=== PATIENT | female | born 2000 | race Caucasian/White ===

== ENCOUNTER 2024-11-10 21:56 | Inpatient (IN) ==
[2024-11-10] MEDS ORDERED: LIDOCAINE 1% LOCAL 20 ML VIAL INFIL PRN (22:08)
[2024-11-10] MEDS ORDERED: OXYTOCIN 30 UNITS/NSS 30 UNITS/500 ML BAG IV PRN (22:08)
[2024-11-10] MEDS: OXYTOCIN 30 UNITS/NSS 30 UNITS/500 ML BAG IV PRN (22:26)
--- NOTE | 2024-11-10 22:33 | Delivery Summary ---
Vaginal Delivery Summary Date of Service November 10, 2024 Vaginal Delivery Summary and VAVD Vaginal delivery the patient arrived at 9 cm it was her third baby she did not want an epidural requested for artificial rupture of membranes this was performed it was noted that her heart rate was in the 80-100 range. After several pushes she did move the baby from 9 cm to fully dilated however at this stage I recommended vacuum we used a Kiwi vacuum attach this in the proper location and pulled for 1 contraction the head was easily delivered. Station was +2 there was no molding The shoulder required some effort is after delivery of the head there was no nuchal cord there was some thin meconium I attempted to relieve the anterior shoulder from the symphysis pubis but could not initially maternal head was lowered Tito was performed and suprapubic pressure was performed this release the shoulder 45 seconds total to deliver the baby. Baby initially required some substation but Apgars were 5 and 9 should be noted the vacuum was removed after delivery of the head I had briefly discussed with the patient risks and benefits of vacuum but the situation was emergent There was no tearing placenta was removed with gentle traction IV Pitocin started QBL was 50 mL [facility] Vaginal Delivery Charge Delivery Type Details: and VAVD
[2024-11-10] MEDS ORDERED: DIPHTHER/TETAN/PERTUS Vaccine (Tdap, Adol/Adult) 0.5mL IM ONE (22:37)
[2024-11-10] MEDS ORDERED: BENZOCAINE 20% SPRY 85 APPLN/85 GM CAN EXT PRN (22:37)
[2024-11-10] MEDS ORDERED: HYDROCORTISONE ACETATE 25 MG SUPP PR PRN (22:37)
[2024-11-11 00:04] LABS: Basophils # (auto) 0.04 K/uL (0.00-0.20); Basophils % (auto) 0.2 %; Eosinophils # (auto) 0.01 K/uL (0.00-0.50); Eosinophils % (auto) 0.1 %; Hematocrit (blood only) 35.5 % (37.0-47.0); Immature Granulocytes % (auto) 0.5 %; Lymphocytes # (auto) 1.18 K/uL (1.20-3.40); Lymphocytes % (auto) 6.1 %; Mean Corpuscular Hemoglobin 31.3 pg (25.0-34.0); Mean Corpuscular Hgb Conc 33.8 g/dL (32.0-36.0); Mean Corpuscular Volume 92.4 fL (80.0-100.0); Mean Platelet Volume 10.4 fL (9.4-12.4); Monocytes % (auto) 3.6 %; Neutrophils # (auto) 17.34 K/uL (1.40-6.50); Neutrophils % (auto) 89.5 %; Platelet Count 211 K/uL (130-400); RDW Coefficient of Variation 12.4 % (11.5-14.5); RDW Standard Deviation 41.4 fL (36.4-46.3); Red Blood Count 3.84 M/uL (4.20-5.40); White Blood Count 19.37 K/ul (4.8-10.8)
[2024-11-11] MEDS: ACETAMINOPHEN 325 MG TAB PO PRN (01:49)
[2024-11-11 03:21] LABS: Base Excess Cord Arterial Bld -3.7 mEq/L (-9-1.8); Base Excess Cord Venous Blood -3.5 mEq/L (-7.7-1.9); CO2 Cord Arterial Blood 75 mmHg (39.1-73.5); Cord Venous Blood HCO3 25 mmol/L (18.4-26.8); Cord Venous Blood PCO2 60 mmHg (30.4-57.2); Cord Venous Blood PO2 < 20 mmHg (14.1-43.3); Cord Venous Blood pH 7.23 (7.20-7.44); HCO3 Cord Arterial Blood 27 mmol/L (19.7-28.5); O2 Saturation Cord Venous Bld < 60.0 % (<68); Oxygen Sat Cord Arterial Blood < 60.0 % (<60); PO2 Cord Arterial Blood < 20 mmHg (4.1-31.7); pH Cord Arterial Blood 7.16 (7.1-7.38)
[2024-11-11 05:58] LABS: Hematocrit (blood only) 33.3 % (37.0-47.0); Hemoglobin 11.5 g/dl (12.0-16.0); Mean Corpuscular Hgb Conc 34.5 g/dL (32.0-36.0); Mean Corpuscular Volume 92.8 fL (80.0-100.0); Mean Platelet Volume 10.4 fL (9.4-12.4); Platelet Count 222 K/uL (130-400); RDW Coefficient of Variation 12.3 % (11.5-14.5); RDW Standard Deviation 41.6 fL (36.4-46.3); Red Blood Count 3.59 M/uL (4.20-5.40); White Blood Count 20.12 K/ul (4.8-10.8)
--- NOTE | 2024-11-11 07:36 | Obstetrical Progress Note ---
Date of Service November 11, 2024 Assessment & Plan (1) state: Plan Yanira is a 24yo day 1 s/p VAVD. Feeling well this AM, VSS. Continue care Encourage ambulation and Pain control as needed Hgb: 12.0 on 11/10/24, asymptomatic Home tomorrow 11/12/[address] Rios in 6wks. Admission and Anticipated Discharge Date Admission Date: November 10, 2024 Supervising Physician Co-Signing Physician Notes Resident Physician Supervision Note: I was present with Dr. Mcintoshduring the history and exam. I discussed the case with the resident and agree with the findings and plan as documented in the note. Any exceptions or clarifications are listed here: [None] Documented By: Abhijit Rios MD, FACOG Subjective Yanira is a 24yo day 1 s/p VAVD. Feeling well this AM, endorses some sleep overnight. Pain: endorses some tailbone pain, tolerable Ambulation: yes Gas: yes Voiding: urinating, no BM yet Lochia: steady Diet: tolerating well Feeds: , supplementing if needed Denies headache, chest pain, SOB, n/v/d, LE pain/swelling, LE numbness/tingling. Review of Systems Review of Systems: Denies fever, body aches, chills, sweats, vision changes, significant vaginal bleeding/discharge. Physical Exam Physical Exam: General: A&Ox3, resting comfortably in bed, in no apparent distress, nontoxic in appearance Skin: warm, dry, intact HEENT: EOM intact, PERRL b/l Cardiovascular: RRR, +s1/s2, no murmurs/rubs/gallops Pulmonary: clear to auscultation b/l, no wheezes/rales/rhonchi GI/Abd: +BS, uterine fundus firm, non-tender to palpation, level of umbilicus Extremities: no significant swelling or erythema of b/l LE, nontender to palpation, negative Maximiliano's b/l; warm, no clubbing or cyanosis Neuro: no facial droop, speech intact, moves all extremities on command Results & Data Vital Signs (Past 12 Hours) Vital Signs Temp Pulse Pulse Resp BP BP Pulse Ox 11/11/24 05:00 36.6 C 70 18 123/79 99 11/11/24 01:26 36.3 C L 76 16 128/81 100 11/11/24 00:35 69 18 131/80 11/11/24 00:21 73 122/70 11/11/24 00:06 73 18 125/78 11/10/24 23:50 75 124/75 11/10/24 23:36 70 18 122/71 11/10/24 23:21 68 18 126/73 11/10/24 23:06 81 18 133/92 11/10/24 22:51 85 18 142/91 H 11/10/24 22:42 36.8 C 83 18 135/87 11/10/24 22:36 83 18 135/87 11/10/24 22:09 98 H 147/96 H O2 Del Method 11/11/24 05:00 Room Air 11/11/24 01:26 Room Air 11/11/24 00:35 11/11/24 00:21 11/11/24 00:06 11/10/24 23:50 11/10/24 23:36 11/10/24 23:21 11/10/24 23:06 11/10/24 22:51 11/10/24 22:42 11/10/24 22:36 11/10/24 22:09 Laboratory Results 11/11/24 11/10/24 11/10/24 Range/Units 05:40 23:45 22:22 WBC 20.12 H 19.37 H (4.8-10.8) K/ul RBC 3.59 L 3.84 L (4.20-5.40) M/uL Hgb 11.5 L 12.0 (12.0-16.0) g/dl Hct 33.3 L 35.5 L (37.0-47.0) % MCV 92.8 92.4 (80.0-100.0) fL MCH 32.0 31.3 (25.0-34.0) pg MCHC 34.5 33.8 (32.0-36.0) g/dL RDW Std Deviation 41.6 41.4 (36.4-46.3) fL RDW Coeff of Ester 12.3 12.4 (11.5-14.5) % Plt Count 222 211 (130-400) K/uL MPV 10.4 10.4 (9.4-12.4) fL Immature Gran % (Auto) 0.5 % Neut % (Auto) 89.5 % Lymph % (Auto) 6.1 % [place] % (Auto) 3.6 % Eos % (Auto) 0.1 % Baso % (Auto) 0.2 % Neut # (Auto) 17.34 H (1.40-6.50) K/uL Lymph # (Auto) 1.18 L (1.20-3.40) K/uL [place] # (Auto) 0.70 H (0.11-0.59) K/uL Eos # (Auto) 0.01 (0.00-0.50) K/uL Baso # (Auto) 0.04 (0.00-0.20) K/uL Immature Gran # (Auto) 0.10 (0.01-0.20) K/uL Cord ABG pH (7.1-7.38) Cord ABG pCO2 (39.1-73.5) mmHg Cord ABG pO2 (4.1-31.7) mmHg Cord ABG HCO3 (19.7-28.5) mmol/L Cord ABG Base Excess (-9-1.8) mEq/L Cord ABG O2 Sat (<60) % Cord VBG pH (7.20-7.44) Cord VBG pCO2 (30.4-57.2) mmHg Cord VBG pO2 (14.1-43.3) mmHg Cord VBG HCO3 (18.4-26.8) mmol/L Cord VBG Base Excess (-7.7-1.9) mEq/L Cord VBG O2 Sat (<68) % Blood Gas Comments [place] Treponema pallidum Ab Negative (Negative) 11/10/24 Range/Units 22:22 WBC (4.8-10.8) K/ul RBC (4.20-5.40) M/uL Hgb (12.0-16.0) g/dl Hct (37.0-47.0) % MCV (80.0-100.0) fL MCH (25.0-34.0) pg MCHC (32.0-36.0) g/dL RDW Std Deviation (36.4-46.3) fL RDW Coeff of Ester (11.5-14.5) % Plt Count (130-400) K/uL MPV (9.4-12.4) fL Immature Gran % (Auto) % Neut % (Auto) % Lymph % (Auto) % [place] % (Auto) % Eos % (Auto) % Baso % (Auto) % Neut # (Auto) (1.40-6.50) K/uL Lymph # (Auto) (1.20-3.40) K/uL [place] # (Auto) (0.11-0.59) K/uL Eos # (Auto) (0.00-0.50) K/uL Baso # (Auto) (0.00-0.20) K/uL Immature Gran # (Auto) (0.01-0.20) K/uL Cord ABG pH 7.16 (7.1-7.38) Cord ABG pCO2 75 H (39.1-73.5) mmHg Cord ABG pO2 < 20 (4.1-31.7) mmHg Cord ABG HCO3 27 (19.7-28.5) mmol/L Cord ABG Base Excess -3.7 (-9-1.8) mEq/L Cord ABG O2 Sat < 60.0 (<60) % Cord VBG pH 7.23 (7.20-7.44) Cord VBG pCO2 60 H (30.4-57.2) mmHg Cord VBG pO2 < 20 (14.1-43.3) mmHg Cord VBG HCO3 25 (18.4-26.8) mmol/L Cord VBG Base Excess -3.5 (-7.7-1.9) mEq/L Cord VBG O2 Sat < 60.0 (<68) % Blood Gas Comments [place] Treponema pallidum Ab (Negative) Resident Activity Tracking Resident Involvement: Resident Care Provided Care Provided: OB Delivery
[2024-11-11] MEDS: DOCUSATE SODIUM 100 MG CAP PO SCH (07:53)
[2024-11-11] MEDS: IBUPROFEN 600 MG TAB PO PRN (07:53)
[2024-11-11] MEDS: PRENATAL VITAMIN 1 TAB PO SCH (07:53)
[2024-11-11] MEDS: bisacodyL 5 MG TABEC PO SCH (20:01)
--- NOTE | 2024-11-12 06:27 | Obstetrical Progress Note ---
Date of Service November 12, 2024 Assessment & Plan (1) state: Plan Yanira is a 24yo day 2 s/p VAVD. Feeling well this AM, VSS. Continue care Encourage ambulation and Pain control as needed Hgb: 12.0 -> 11.0, asymptomatic Home today, around 4pm Followup with Dr. Rios in 6wks. Admission and Anticipated Discharge Date Admission Date: November 10, 2024 Supervising Physician Co-Signing Physician Notes Patient seen with resident and agree with the above findings and plan. Stable for discharge Subjective Yanira is a 24yo day 2 s/p VAVD. Feeling well this AM, endorses some sleep overnight. Pain: endorses some tailbone pain, tolerable Ambulation: yes Gas: yes Voiding: urinating, 2 BMs Lochia: steady Diet: tolerating well Feeds: , supplementing if needed Denies headache, chest pain, SOB, n/v/d, LE pain/swelling, LE numbness/tingling. Review of Systems Review of Systems: Denies fever, body aches, chills, sweats, vision changes, significant vaginal bleeding/discharge. Physical Exam Physical Exam: General: A&Ox3, resting comfortably in bed, in no apparent distress, nontoxic in appearance Skin: warm, dry, intact HEENT: EOM intact, PERRL b/l Cardiovascular: RRR, +s1/s2, no murmurs/rubs/gallops Pulmonary: clear to auscultation b/l, no wheezes/rales/rhonchi GI/Abd: +BS, uterine fundus firm, non-tender to palpation, 1 fingerwidth inferior to level of umbilicus Extremities: no significant swelling or erythema of b/l LE, nontender to palpation, negative Maximiliano's b/l; warm, no clubbing or cyanosis Neuro: no facial droop, speech intact, moves all extremities on command Results & Data Vital Signs (Past 12 Hours) Vital Signs Temp Pulse Resp BP Pulse Ox O2 Del Method 11/11/24 22:55 36.7 C 75 18 131/84 98 Room Air 11/11/24 19:06 36.8 C 72 18 117/77 96 Room Air Laboratory Results 11/12/24 11/10/24 Range/Units 07:04 23:45 Hgb 11.0 L (12.0-16.0) g/dl Hct 32.9 L (37.0-47.0) % Treponema pallidum Ab Negative (Negative) Resident Activity Tracking Resident Involvement: Resident Care Provided Care Provided: OB Delivery
[2024-11-12 07:41] LABS: Hematocrit (blood only) 32.9 % (37.0-47.0)
[2024-11-12 07:43] VITALS: RESP 16; TEMP 98.2
[2024-11-12 15:59] VITALS: BP 141/86; PULSE 80; O2SAT 100
[2024-11-12] MEDS ORDERED: bisacodyL 10 MG SUPP PR PRN (22:37)
--- NOTE | 2024-11-16 09:11 | Discharge Summary ---
Date of Service November 16, 2024 Admission Exam (Per Admitting) Constitutional WD/WN, vitals as above well developed and well nourished Respiratory normal respiratory effort, lungs clear to auscultation normal respiratory effort Cardiovascular RRR, no murmur, no edema Gastrointestinal (Abdomen) normal bowel sounds, soft, nontender, no hepatosplenomegaly Hospital Course (1) state: Sheba Doyle is a 24yo day 2 s/p VAVD. Feeling well this AM, VSS. Continue care Encourage ambulation and Pain control as needed Hgb: 12.0 -> 11.0, asymptomatic Home today, around 4pm Followup with Dr. Rios in 6wks. Supervising Physician Co-Signing Physician Notes Patient seen with resident and agree with the above findings and plan. Stable for discharge Coding Level of Care Code None Diagnoses state Z39.2
== END 2024-11-12 16:20 | disposition home or self-care (01) | DRG 807 ==
LOC: OPB 21:56 → 4S1 21:58 → 4E2 11-11 01:00